=== PATIENT | male | born 1940 | race Caucasian/White ===

== ENCOUNTER 2016-07-10 14:08 | Day surgery (SDC) | payer MEDICARE ==
[~2016-07-10] VITALS: Ht 185.4 cm; Wt 95.8 kg
[~2016-07-10 14:08] MED LIST: ASPI325T24 PO; AZOP1SUS BOTH EYES; BISO5TAB2 PO; METO50TA PO; PROS5TAB2 PO; RAMI10CA PO; TIMO0.254 EACH EYE; TOPR50TA PO; TRIA.025%T TOP
[2016-07-10] MEDS ORDERED: VANCOMYCIN 1000 MG/NS 250 ML IV SCH ×2 (15:45)
[2016-07-10] MEDS ORDERED: CHLORHEXIDINE GLUCONATE 2 % 1 PACK (2 CLOTHS) TOP SCH (15:45)
[2016-07-10] MEDS ORDERED: POVIDONE IODINE 5% (ANTISEPSIS KIT) 4 APPLICATIONS EACH NARE SCH (15:45)
[2016-07-10] MEDS ORDERED: MUPIROCIN 2% OINT 1 APPLIC/GM SYR NASAL SCH (15:45)
[2016-07-10] MEDS ORDERED: LORazepam 1 MG TAB SL SCH (15:45)
[2016-07-10 15:57] LABS: AUTOMATED NEUTROPHIL # 3.6 TH/MM3 (1.8-7.7); BASOPHIL % 0.8 % (0.0-2.0); EOSINOPHIL # 0.4 TH/MM3 (0-0.4); EOSINOPHIL % 6.2 % (0.0-4.0); HEMO FLAGS DIFF FINAL; LYMPHOCYTE # 1.3 TH/MM3 (1.0-4.8); MEAN CORPUSCULAR HEMOGLOBIN 29.2 PG (27.0-34.0); MEAN CORPUSCULAR HGB CONC 33.2 % (32.0-36.0); MONO % 8.2 % (0.0-8.0); NEUT % 61.8 % (16.0-70.0); PLATELET COUNT 157 TH/MM3 (150-450); RED BLOOD COUNT 4.78 MIL/MM3 (4.50-5.90); RED CELL DISTRIBUTION WIDTH 14.4 % (11.6-17.2); WHITE BLOOD COUNT 5.9 TH/MM3 (4.0-11.0)
[2016-07-10 16:07] LABS: BICARBONATE 27.7 MEQ/L (21.0-32.0); POTASSIUM 3.6 MEQ/L (3.5-5.1)
[2016-07-10] MEDS ORDERED: LACTATED RINGER'S 1000 ML IV SCH (16:15)
[2016-07-10] MEDS ORDERED: METOPROLOL TARTRATE 25 MG TAB PO PRN (16:15)
[2016-07-10] MEDS ORDERED: SODIUM CHLORID 0.9% 500 ML IV SCH (16:15)
[2016-07-10] MEDS ORDERED: INSULIN HUMAN REGULAR 1,000 UNITS/10 ML VIAL SQ PRN (16:15)
[2016-07-10 16:22] VITALS: BP 131/73; PULSE 50; RESP 18; TEMP 97.6; O2SAT 100
[2016-07-10 16:25] LABS: APTT (PATIENT) 36.2 SEC (24.3-30.1); PROTHROMBIN TIME - PATIENT 10.8 SEC (9.8-11.6)
--- NOTE | 2016-07-10 16:33 | MB ---
cc: PAZ LOPEZ M.D. DATE OF CONSULTATION: 07/10/2016. REASON FOR CONSULTATION: Electrophysiology consult, heart failure, defibrillator end-of-life. HISTORY OF PRESENT ILLNESS: Mr. Zuñiga is a 76-year-old gentleman with history of coronary artery disease. He had an ejection fraction of around 30% in 2009. A defibrillator was implanted. Currently the gentleman's defibrillator is end-of-life. He also has a history of high blood pressure as well as hyperlipidemia. I was consulted for evaluation for generator replacement. The chart was reviewed. The patient was evaluated. ALLERGIES: THE GENTLEMAN IS NOT SURE. HE DID STATE HE USED TO BE ALLERGIC TO PENICILLIN, BUT HE TOOK PENICILLIN OVER THE YEAR AND WAS DOING FINE. FAMILY HISTORY: Noncontributory to his current medical condition. SOCIAL HISTORY: The gentleman drinks occasionally. MEDICATIONS: 1. Aspirin. 2. Atorvastatin. 3. Bisoprolol. 4. Finasteride. 5. . 6. Nitroglycerin PRN. REVIEW OF SYSTEMS: He refers no chest pain, no chest discomfort, no vomiting. No fever. PHYSICAL EXAMINATION: GENERAL: Alert, fully oriented. VITAL SIGNS: His blood pressure today is 131/73, pulse 56, respiratory rate 18. LUNGS: Ventilated. CARDIOVASCULAR: S1 and S2 regular. No gallop. ABDOMEN: Abdomen soft, no mass, no bruits. EXTREMITIES: No edema. EKGS: Electrocardiogram not available. Telemetry shows sinus rhythm. ASSESSMENT AND RECOMMENDATIONS: Mr. Zuñiga has a defibrillator that was placed in 2009. The generator is end-of-life. The device is beeping a lot. His ejection fraction has improved since then. The last one in 2016, the ejection fraction was over 50%. He has a device implanted for primary prevention. Generator replacement will be performed. The risks, the nature and the benefits of the procedure were clearly stated to him. The risks include pneumothorax, cardiac perforation, stroke and even . He understood and agreed to proceed. The procedure will be performed during hospitalization. MD ABEL Agsutin/MAURICIO /3:37 PM /4:27 PM
[2016-07-10] MEDS ORDERED: ATOR10TA15 PO (16:36)
[2016-07-10] MEDS ORDERED: LACTCAP8 PO (16:36)
[2016-07-10] MEDS ORDERED: DORZ2SOL15 EACH EYE (16:36)
[2016-07-10] MEDS ORDERED: BISO5TAB5 PO (16:36)
[2016-07-10] MEDS ORDERED: ASPI1TAB69 PO (16:36)
[2016-07-10] MEDS ORDERED: METH50TA2 PO (16:36)
[2016-07-10] MEDS ORDERED: FINA5TAB2 PO (16:36)
[2016-07-10] MEDS ORDERED: LUMI0.01 EACH EYE (16:36)
[2016-07-10] MEDS ORDERED: OLOP1DRO EACH EYE (16:36)
[2016-07-10] MEDS ORDERED: TAMS0.4C4 PO (16:36)
[2016-07-10] MEDS ORDERED: OCUVTAB4 PO (16:37)
[2016-07-10] MEDS ORDERED: LIDOCAINE HCL 2% 50 ML VIAL ONE (18:24)
[2016-07-10] MEDS ORDERED: VANCOMYCIN 500 MG VIAL ONE (18:24)
[2016-07-10] MEDS ORDERED: VANCOMYCIN HCL 1000 MG VIAL ONE (18:24)
[2016-07-10] MEDS ORDERED: SODIUM CHLOR 0.9% 250 ML INJ 250 ML ONE (18:25)
[2016-07-10] MEDS ORDERED: PROPOFOL 200 MG/20 ML AMP IV ONE (19:00)
--- NOTE | 2016-07-10 19:19 | PD.CARD ---
Dual Defib Replacement PROCEDURE DATE: Jul 10, 2016 NYHA Classification: Class I (Mild) Prevention: Secondary Dual Defib Replacement PROCEDURE 1. Single chamber defibrillator removal. 2. Single chamber defibrillator replacement. 3. Pocket revision. 4. Device testing. Mr. 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 The risks, the nature and the benefit of the procedure clearly stated to him. The risks include pneumothorax, cardiac perforation, stroke and even . He understood and agreed to proceed. PROCEDURE After written informed consent was obtained, the patient was brought to the EP lab where he was prepped and draped in the usual sterile fashion. Conscious sedation was initiated and maintained throughout the procedure by anesthesiologist. Once sedation was verified, the left infraclavicular area was anesthetized with 2% Xylocaine. Using #11 blade scalpel, a 3-cm incision was made over the existing generator. The incision was then taken down deep fascial layers generator exposed. Once exposed, it was removed from the pocket. Scar tissue was removed around the lead pocket revision was performed. Pocket was expanded. Then, the lead was disconnected from the generator and tested. After adequate pacing and sensing thresholds were obtained. The leads were connected to the new generator and placed into the pocket. I then proceeded with NIPS. Initial induction consisted of T-wave shock from ventricular fibrillation which was adequately detected and treated by the ICD generator delivering the 20 joule defibrillatory shock converting the patient back into sinus rhythm. Shocking impedance 43 ohms, charge time 4.8 seconds. At that point NIPS was completed. I then proceeded with wound closure. The deep fascial layer was approximated using 2-0 Vicryl suture in a continuous fashion. The subcutaneous layer was approximated using 2-0 Vicryl suture in a continuous fashion. The subcuticular layer was approximated using 2-0 Vicryl suture in a continuous fashion. Dermabond adhesive was applied to the wound followed by sterile pressure dressing. There was no complication. The patient tolerated procedure. Blood loss minimal. 1. Explanted hardware: The explanted defibrillator is a [employer] model number S463ETA, serial number [id number]. That was implanted in 2009. For information about existing lead please refer to previous dictation. 2. Implanted hardware: The implanted defibrillator generator is a [employer], model number [employer]. Model # CRGP2U6, serial number [id number]. 3. Threshold: The right ventricular pacing threshold in the bipolar mode was 1.0 volts at 0.4 milliseconds. Lead impedance 610 ohms and R-wave at 11.4 mV. The right ventricle defibrillatory threshold less than or equal to 20 joules, shocking impedance 43 ohms, charge time 4.8 seconds. 4. Settings: The device is set in a VVI 40. Defibrillatory portioned for two zones, one zone for ventricular tachycardia between 170 to 250 beats per minute. Initial therapy consists of one burst of ATP, one ramp, 81%, 10 pulses, 10 ms decremental followed by 20 then 25 and all subsequent shocks at 35 joules defibrillatory shock. Second zone for ventricular fibrillation above 250 beats per minute, first therapy at 25 and all subsequent shocks at 35 joule defibrillatory shock. CONCLUSIONS Successful defibrillator removal, defibrillator replacement and device testing. COMMENT/RECOMMENDATIONS The patient will be transferred to telemetry unit. He will be observed, when stable can be discharged home Letha Snow MD Jul 10, 2016 19:19
[2016-07-10] MEDS ORDERED: ACET300T2 PO (19:24)
[2016-07-10] MEDS ORDERED: LEVA500T PO (19:24)
[2016-07-10] MEDS ORDERED: ACETAMINOPHEN/CODEINE 300 MG/30 MG TAB PO PRN ×2 (19:30)
[2016-07-10] MEDS ORDERED: ONDANSETRON HCL 4 MG/2 ML VIAL IV PRN (19:30)
[2016-07-10] MEDS ORDERED: SODIUM CHLORIDE 0.9% FLUSH 5 ML FLUSH IVF PRN (19:30)
[2016-07-10] MEDS ORDERED: SODIUM CHLORIDE 0.9% FLUSH 5 ML FLUSH IVF SCH (21:00)
--- NOTE | 2016-07-11 16:36 | EKG ---
Date Performed: 07/10/2016 Time Performed: 16:02:46 PTAGE: 76 years EKG: Sinus bradycardia Normal ECG except for rate PREVIOUS TRACING : 06/12/2009 17.47 Compared to previous tracing, sinus rate is slower. DOCTOR: Dominic Anne Interpretating Date/Time 07/11/2016 16:35:28
== END 2016-07-10 21:25 | disposition home or self-care (01) ==
LOC: HDOC 14:08 → HDIC 14:09 → HDOC 21:25
PROVIDERS: ATTEND Internal Medicine Interventional Cardiology
DX: Z45.02 Encounter for adjustment and management of automatic implantable cardiac defibrillator (principal); I47.2 Ventricular tachycardia; I42.9 Cardiomyopathy, unspecified; Z82.49 Family history of ischemic heart disease and other diseases of the circulatory system; Z79.82 Long term (current) use of aspirin
CPT/HCPCS: 33262; 80048; 85025; 85610; 85730; 86850; 86900; 86901; 93005; 93641; C1722; J3010; J3370; J7050; C1895

== ENCOUNTER 2018-01-06 14:20 | Inpatient (IN) ==
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
[2018-01-06 15:23] LABS: Baso % (Auto) 0.6 % (0.0-2.0); Eos # (Auto) 0.2 th/mm3 (0.0-0.4); Eos % (Auto) 2.6 % (0.0-4.0); Hematocrit 38.9 % (39.0-51.0); Lymph # (Auto) 0.9 th/mm3 (1.0-4.8); Lymph % (Auto) 12.3 % (9.0-44.0); Mean Corpuscular HGB Conc 33.3 % (32.0-36.0); Mean Corpuscular Hemoglobin 30.4 pg (27.0-34.0); Mean Corpuscular Volume 91.4 fL (80.0-100.0); Mean Platelet Volume 8.9 fL (7.0-11.0); Mono # (Auto) 0.5 th/mm3 (0.0-0.9); Mono % (Auto) 6.6 % (0.0-8.0); Neut # (Auto) 5.8 th/mm3 (1.8-7.7); Neut % (Auto) 77.9 % (16.0-70.0); Platelet Count 166 th/mm3 (150-450); Red Blood Count 4.26 mil/mm3 (4.50-5.90); Red Cell Distribution Width 13.8 % (11.6-17.2); White Blood Count 7.4 th/mm3 (4.0-11.0)
--- NOTE | 2018-01-06 15:24 | XR ---
EXAM DATE: 01/06/2018 3:15 PM EDT AGE/SEX: 77 years / Male INDICATIONS: Chest pain. CLINICAL DATA: This is the patient's initial encounter. Patient reports that signs and symptoms have been present for 1 day and indicates a pain score of 5/10. MEDICAL/SURGICAL HISTORY: None. Pacemaker. COMPARISON: POI, XR CHEST PA AND LAT, 12/03/2017. . FINDINGS: A single AP view of the chest demonstrates the lungs to be symmetrically aerated without evidence of mass, infiltrate or effusion. The cardiomediastinal contours are unremarkable. Osseous structures a re intact. Left subclavian transvenous cardiac pacer/defibrillator again noted. CONCLUSION: No evidence of acute cardiopulmonary disease. Electronically signed by: Jhon Robbins MD 01/06/2018 3:23 PM EDT
[2018-01-06 15:39] LABS: Activated Partial Thrombo Time 32.9 sec (24.3-30.1); INR 1.2 Ratio; Prothrombin Time 11.8 sec (9.8-11.6)
[2018-01-06 15:50] LABS: Anion Gap 11 meq/L (5-15); Blood Urea Nitrogen 14 mg/dL (7-18); Calcium 8.3 mg/dL (8.5-10.1); Carbon Dioxide 18.4 meq/L (21.0-32.0); Chloride 113 meq/L (98-107); Glomerular Filtration Rate 47 mL/min (>89); Glucose,Random 98 mg/dL (74-106); Potassium 3.7 meq/L (3.5-5.1); Sodium 142 meq/L (136-145)
--- NOTE | 2018-01-06 15:51 | CT ---
EXAM DATE: 01/06/2018 3:46 PM EDT AGE/SEX: 77 years / Male INDICATIONS: Trauma, fall. CLINICAL DATA: This is the patient's initial encounter. Patient reports that signs and symptoms have been present for 1 day and indicates a pain score of 5/10. MEDICAL/SURGICAL HISTORY: None. None. RADIATION DOSE: 38.89 CTDI (mGy) COMPARISON: No prior exams available for comparison. TECHNIQUE: CT of the head without contrast. Using automated exposure control and adjustment of the mA and/or kV according to patient size, radiation dose was kept as low as reasonably achievable to ob tain optimal diagnostic quality images. DICOM format image data is available electronically for revi ew and comparison. FINDINGS: Cerebrum: The ventricles are normal for age. No evidence of midline shift, mass lesion, hemorrhage or acute infarction. No extraaxial fluid collections are seen. Posterior Fossa: The cerebellum and brainstem are intact. The 4th ventricle is midline. The cerebe llopontine angle is unremarkable. Extracranial: The visualized portion of the orbits is intact. Skull: The calvaria is intact. No evidence of skull fracture. CONCLUSION: No acute intracranial abnormality . Electronically signed by: Jhon Robbins MD 01/06/2018 3:50 PM EDT
[2018-01-06 15:54] LABS: Creatine Kinase 138 U/L (39-308)
[2018-01-06 16:06] LABS: Creatine Kinase MB 2.4 ng/mL (0.5-3.6)
[2018-01-06] MEDS ORDERED: Lidocaine 1% Inj 30 ML Vial INFILTRATN ONE (16:27)
[2018-01-06] MEDS ORDERED: Acetaminophen 325 MG Tablet PO PRN (16:28)
[2018-01-06] MEDS ORDERED: Bisacodyl 10 MG Supp RECTAL PRN (16:28)
--- NOTE | 2018-01-06 16:39 | CT ---
EXAM DATE: 01/06/2018 3:45 PM EDT AGE/SEX: 77 years / Male INDICATIONS: Trauma, fall. CLINICAL DATA: This is the patient's initial encounter. Patient reports that signs and symptoms have been present for 1 day and indicates a pain score of 4/10. MEDICAL/SURGICAL HISTORY: None. None. RADIATION DOSE: 18.79 CTDI (mGy) COMPARISON: No prior exams available for comparison. TECHNIQUE: Contiguous axial images were obtained using helical multirow detector technique. The vol umetric data was post-processed with multiplanar reconstruction in oblique axial, sagittal, and coron al planes. Using automated exposure control and adjustment of the mA and/or kV according to patient s ize, radiation dose was kept as low as reasonably achievable to obtain optimal diagnostic quality lazara ges. DICOM format image data is available electronically for review and comparison. FINDINGS: There is no fracture or subluxation of the cervical spine. Vertebral bodies have normal height. Parav ertebral soft tissues are within normal limits. Moderate to severe disc space narrowing seen at C6/C7 and C7/T1. There is moderate foraminal stenosis on the left at C6/C7. Moderate disc space narrowing at C5/C6 without evidence of foraminal stenosis. There are mild degenerative changes at the other levels. No significant spinal stenosis demonstrated . CONCLUSION: 1. Intact cervical spine. 2. Degenerative changes as above, lower cervical predominant. Electronically signed by: Jhon Robbins MD 01/06/2018 4:38 PM EDT
[2018-01-06] MEDS ORDERED: Lidocaine 2% Inj 50 ML Vial ONE (16:44)
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
[2018-01-06 18:45] LABS: Creatine Kinase 198 U/L (39-308)
[2018-01-06 20:19] LABS: Amorphous Sediment,Urine Few /hpf; Bacteria,Urine Few /hpf; Bilirubin,Urine Negative (Negative); Clarity,Urine Cloudy (Clear); Color,Urine Yellow (Yellw/Straw); Glucose,Urine (UA) Negative (Negative); Hyaline Casts,Urine 11 /lpf (0-3); Leukocyte Esterase,Urine Negative (Negative); Mucus,Urine Moderate /lpf (Occasional); Nitrite,Urine Negative (Negative); Specific Gravity,Urine 1.018 (1.002-1.035)
--- NOTE | 2018-01-06 21:08 | US ---
EXAM DATE: 01/06/2018 9:02 PM EDT AGE/SEX: 77 years / Male INDICATIONS: Syncope. CLINICAL DATA: This is the patient's initial encounter. Patient reports that signs and symptoms have been present for 1 day and indicates a pain score of 0/10. MEDICAL/SURGICAL HISTORY: Hypertension. Hypercholesterolemia. Glaucoma. Enlarged prostate. P acemaker. COMPARISON: No prior exams available for comparison. VELOCITY PARAMETERS: ICA/CCA Ratio: Right 0.77 , Left 0.87 ICA: Right 81 cm/sec, Left 80 cm/sec CCA: Right 104 cm/sec, Left 92 cm/sec ECA: Right 159 cm/sec, Left 138 cm/sec Vertebral: Right 49 cm/sec antegrade, Left 58 cm/sec antegrade FINDINGS: Right Carotid: Mild arteriosclerotic plaque is visualized.The waveforms are within normal limits. Left Carotid: Mild arteriosclerotic plaque is visualized. The waveforms are within normal limits. Other: None. CONCLUSION: 1. Right Internal Carotid Artery: No significant stenosis. Mild atherosclerotic plaque is visualized . 2. Left Internal Carotid Artery: No significant stenosis. Mild atherosclerotic plaque is visualized. 3. Antegrade flow in both vertebral arteries. Electronically signed by: Rl Figueroa MD 01/06/2018 9:07 PM EDT
[2018-01-06 22:12] LABS: Creatine Kinase 181 U/L (39-308)
[2018-01-06] MEDS: Sod Chloride 0.9% Inj 1,000 ML IV.CONT SCH (22:30)
[2018-01-06] MEDS ORDERED: Latanoprost 0.005% Opth Drops 2.5 ML Bottle EACH EYE SCH (23:00)
[2018-01-07] MEDS: Senna/Docusate Sodium 8.6/50 MG Tablet PO SCH ×2 (00:45→08:49)
[2018-01-07] MEDS: Timolol 0.5% Drops 5 ML Bottle EACH EYE SCH ×2 (00:45→08:48)
[2018-01-07 07:39] LABS: Baso # (Auto) 0.1 th/mm3 (0.0-0.2); Baso % (Auto) 2.2 % (0.0-2.0); Eos # (Auto) 0.3 th/mm3 (0.0-0.4); Eos % (Auto) 4.5 % (0.0-4.0); Hemoglobin 12.8 gm/dL (13.0-17.0); Lymph # (Auto) 1.4 th/mm3 (1.0-4.8); Mean Corpuscular HGB Conc 33.8 % (32.0-36.0); Mean Corpuscular Hemoglobin 30.7 pg (27.0-34.0); Mean Platelet Volume 8.8 fL (7.0-11.0); Mono # (Auto) 0.6 th/mm3 (0.0-0.9); Neut # (Auto) 4.1 th/mm3 (1.8-7.7); Neut % (Auto) 63.3 % (16.0-70.0); Platelet Count 155 th/mm3 (150-450); Red Blood Count 4.17 mil/mm3 (4.50-5.90); White Blood Count 6.5 th/mm3 (4.0-11.0)
[2018-01-07 07:43] LABS: INR 1.1 Ratio; Prothrombin Time 11.3 sec (9.8-11.6)
[2018-01-07 08:04] LABS: Alanine Aminotransferase 23 U/L (12-78); Albumin 3.1 g/dL (3.4-5.0); Anion Gap 8 meq/L (5-15); Aspartate Aminotransferase 15 U/L (15-37); Blood Urea Nitrogen 16 mg/dL (7-18); Calcium 8.3 mg/dL (8.5-10.1); Carbon Dioxide 21.5 meq/L (21.0-32.0); Chloride 113 meq/L (98-107); Glomerular Filtration Rate 53 mL/min (>89); Glucose,Random 77 mg/dL (74-106); Potassium 4.3 meq/L (3.5-5.1); Sodium 142 meq/L (136-145)
[2018-01-07 08:07] LABS: Alkaline Phosphatase 52 U/L (45-117)
--- NOTE | 2018-01-07 08:49 | P.PNCA ---
Subjective Interval history: no complaints Physical Exam Vital signs: Vital Signs 01/06/18 14:25 01/06/18 14:28 01/06/18 16:26 Temperature 97.8 F 97.7 F Pulse Rate 68 78 67 Respiratory Rate 18 16 Blood Pressure 102/55 L 118/76 Pulse Oximetry 98 98 01/06/18 16:35 01/06/18 18:00 01/06/18 19:19 Temperature 97.7 F Pulse Rate 69 66 Respiratory Rate 17 18 Blood Pressure 109/68 127/63 Pulse Oximetry 98 98 100 01/06/18 20:25 01/06/18 21:17 01/07/18 00:00 Temperature 97.7 F Pulse Rate 70 42 L Respiratory Rate 18 16 Blood Pressure 114/53 L 100/55 L Pulse Oximetry 98 99 96 01/07/18 02:40 01/07/18 04:00 01/07/18 04:33 Temperature 97.8 F Pulse Rate 66 44 L 56 L Respiratory Rate 16 Blood Pressure 100/55 L Pulse Oximetry 98 01/07/18 07:36 Temperature 98.8 F Pulse Rate 68 Respiratory Rate 18 Blood Pressure 103/56 L Pulse Oximetry 97 Intake & Output 01/06/18 01/07/18 01/07/18 18:59 06:59 18:59 Intake Total 800 / 800 Output Total 600 / 600 Balance 200 / 200 Weight 92.986 kg Intake: Oral 800 / 800 Output: Urine 600 / 600 Other: # Voids 1 Narrative: tele: sinus suly, intermittent v. pacing (even without bisoprolol) Alert HEENT ecchymoses No JVD Chest clear CV S1S2 suly No edema Assessment and Plan - Assessment (1) Pacemaker syndrome Code(s): I97.190 - Other postprocedural cardiac functional disturbances following cardiac surgery Status: Acute (2) Cardiomyopathy Code(s): I42.9 - Cardiomyopathy, unspecified Status: Acute Plan: Consult Dr. Snow to evaluate for atrial lead (3) AICD (automatic cardioverter/defibrillator) present Code(s): Z95.810 - Presence of automatic (implantable) cardiac defibrillator Status: Acute
[2018-01-07] MEDS ORDERED: BISOPROLOL PO SCH (09:00)
[2018-01-07] MEDS ORDERED: Finasteride 5 MG Tablet PO SCH (09:00)
[2018-01-07] MEDS ORDERED: Lisinopril 5 MG Tablet PO SCH (09:00)
[2018-01-07] MEDS ORDERED: Famotidine 20 MG Tablet PO SCH (09:00)
[2018-01-07] MEDS ORDERED: Olopatadine 0.1% Opth Drops 5 ML Bottle EACH EYE SCH (09:00)
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
[2018-01-07] MEDS: Sod Chloride 0.9% Inj 1,000 ML IV.CONT SCH ×2 (14:31→14:50)
--- NOTE | 2018-01-07 16:02 | ECG ---
Date Performed: 01/06/2018 Time Performed: 14:38:12 PTAGE: 77 years EKG: Sinus rhythm WITH FIRST DEGREE AV BLOCK ABNORMAL ECG PREVIOUS TRACING : 07/10/2016 16.02 DOCTOR: Mauro Vides Interpretating Date/Time 01/07/2018 16:01:15
--- NOTE | 2018-01-07 16:02 | ECG ---
Date Performed: 01/06/2018 Time Performed: 21:15:01 PTAGE: 77 years EKG: Sinus rhythm WITH FREQUENT VENTRICULAR PREMATURE COMPLEXES ABNORMAL RHYTHM ECG PREVIOUS TRACING : 01/06/2018 18.15 DOCTOR: Mauro Vides Interpretating Date/Time 01/07/2018 16:02:08
--- NOTE | 2018-01-07 16:02 | ECG ---
Date Performed: 01/06/2018 Time Performed: 18:15:38 PTAGE: 77 years EKG: SINUS BRADYCARDIA WITH FIRST DEGREE AV BLOCK ABNORMAL ECG PREVIOUS TRACING : 01/06/2018 14.38 DOCTOR: Mauro Vides Interpretating Date/Time 01/07/2018 16:01:31
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
== END 2018-01-07 18:47 | disposition home or self-care (01) ==
LOC: NEPE 14:20 → NEDA 14:20 → NEDH 22:03 → NEPFCDU 01-07
PROVIDERS: ADMIT Hospitalist; ATTEND Hospitalist